=== PATIENT | male | born 2000 | race Caucasian/White ===

== ENCOUNTER 2021-03-25 17:27 | Emergency (ER) | payer BC ==
[2021-03-25 18:12] LABS: RED BLOOD COUNT 5.06 M/UL (4.20-5.50); WHITE BLOOD COUNT 17.5 K/UL (4.5-11.0)
[2021-03-25 18:35] LABS: BUN/CREATININE RATIO 17 (0-10)
== END 2021-03-25 21:00 | disposition home or self-care (01) ==
LOC: ER1 17:27 → EDBD 17:27 → ER1 21:00
PROVIDERS: Physician Assistant
DX: T67.5XXA Heat exhaustion, unspecified, initial encounter (principal); R11.10 Vomiting, unspecified; Z90.89 Acquired absence of other organs; F17.220 Nicotine dependence, chewing tobacco, uncomplicated; E86.0 Dehydration
CPT/HCPCS: 71045; 80053; 81001; 82962; 85025; 93005; 96374; 99284; J2405